=== PATIENT | female | born 1995 | race Hispanic/Latino ===

== ENCOUNTER 2017-09-26 20:20 | Emergency (ER) | payer OTHER, SELFPAY | END 2017-09-26 22:08 | disposition home or self-care (01) | LOC: ERS 20:20 | DX: J45.909 Unspecified asthma, uncomplicated (principal); F98.8 Other specified behavioral and emotional disorders with onset usually occurring in childhood and adolescence; F41.9 Anxiety disorder, unspecified | CPT/HCPCS: J7620 ==

== ENCOUNTER 2020-02-24 11:06 | Emergency (ER) | payer SELFPAY ==
[2020-02-24 14:43] LABS: SARS-CoV-2 MS2 Positive; SARS-CoV-2 N Gene Negative; SARS-CoV-2 S Gene Negative; SARS-CoV-2 by NAA Not Detected (NotDetected); SARS-CoV-2 orf1ab Negative
== END 2020-02-24 11:30 | disposition home or self-care (01) ==
LOC: ERS 11:06
DX: Z20.828 Contact with and (suspected) exposure to other viral communicable diseases (principal); J45.909 Unspecified asthma, uncomplicated
CPT/HCPCS: 87635; 99283; U0003

== ENCOUNTER 2020-04-25 03:25 | Emergency (ER) | payer SELFPAY ==
[2020-04-25] MEDS ORDERED: Ondansetron PF 4 MG/2 ML Vial ONE (03:58)
[2020-04-25] MEDS ORDERED: Morphine 4 MG/ML VIAL ONE (03:58)
[2020-04-25 04:16] LABS: Bilirubin Negative (Negative); Blood, Urine Negative (Negative); Clarity Clear (Clear); Glucose, Urine (Dipstick) Normal (Negative); Ketone, Urine Negative (Negative); Leukocyte Negative Leu/uL (Negative); Nitrite Negative (Negative); Protein, Urine (Dipstick) Negative (Neg-Trace); Specific Gravity, Urine 1.019 (1.002-1.036); Urobilinogen Normal mg/dL (Less than 2)
[2020-04-25 04:47] LABS: #Eosinphils 0.4 thou/uL (0.0-0.7); #Lymphocytes 2.7 thou/uL (1.20-3.40); #Monocytes 0.8 thou/uL (0.11-0.59); #Neutrophils 4.6 thou/uL (1.40-6.50); %Basophils 0.6 % (0.0-1.0); %Eosinophils 4.8 % (0.0-10.0); %Lymphocytes 31.7 % (21.0-51.0); %Neutrophils 53.9 % (42.0-75.0); Hemoglobin 12.2 g/dL (12.0-16.0); Mean Corpuscular HGB CONC 31.5 g/dL (32.0-36.0); Mean Corpuscular Hemoglobin 28.7 pg (27.0-31.0); Mean Corpuscular Volume 91.3 fL (78.0-98.0); Mean Platelet Volume 7.7 fL (7.4-10.4); Platelet Count 421 thou/uL (130-400); RBC Distribution Width 11.8 % (11.5-14.5); Red Blood Cell (RBC) Count 4.25 mill/uL (4.20-5.40); White Blood Cell (WBC) Count 8.6 thou/uL (4.8-10.8)
[2020-04-25 04:49] LABS: BHCG - Serum Negative (NEGATIVE); Pregs Control Background? CLEAR/WHITE (CLR/WHITE); Pregs Control Bar Appear? YES (CONTROL BAR)
[2020-04-25 05:02] LABS: ALT (SGPT) 28 U/L (8-55); AST (SGOT) 15 U/L (5-34); Alkaline Phosphatase 57 U/L (40-110); Anion Gap 14 mmol/L (10-20); BUN (Urea Nitrogen) 7 mg/dL (7.0-18.7); Bilirubin, Total 0.3 mg/dL (0.2-1.2); Calc. Creatinine Clearance 0 mL/min (70-130); Calcium 8.8 mg/dL (7.8-10.44); Carbon Dioxide 22 mmol/L (22-29); Chloride 107 mmol/L (98-107); Globulin 3.2 g/dL (2.4-3.5); Glucose 110 mg/dL (70-105); Protein, Total 7.2 g/dL (6.0-8.3); Sodium 139 mmol/L (136-145)
== END 2020-04-25 06:06 | disposition home or self-care (01) ==
LOC: ERS 03:25
DX: N83.202 Unspecified ovarian cyst, left side (principal); R11.0 Nausea; J45.909 Unspecified asthma, uncomplicated
CPT/HCPCS: 76856; 80053; 81003; 84703; 85025; 96374; 96375; J2270; J2405

== ENCOUNTER 2020-04-25 08:44 | Observation (INO) | payer SELFPAY ==
[2020-04-25] MEDS ORDERED: Ondansetron PF 4 MG/2 ML Vial ONE (10:25)
[2020-04-25] MEDS ORDERED: Morphine 4 MG/ML VIAL ONE (10:25)
--- NOTE | 2020-04-25 11:42 | PDOC.BPN ---
- Brief Progress Note OBGYN ED note BED 19 Reason for eval: Pelvic pain. R/O Torsion Patient seen at bedside. Non surgical exam. We will place in observation for now. See full dictated H&P for workup and eval. DX: 1. Pelvic pain 2. menses 3. HTN, NOS
[2020-04-25] MEDS ORDERED: Ibuprofen 600 MG TAB PO PRN (11:55)
--- NOTE | 2020-04-25 13:38 | ULT ---
EXAM: PELVIC ULTRASOUND INCLUDING TRANSABDOMINAL, TRANSVAGINAL, AND VASCULAR DUPLEX WITH COLOR AND SPECTRAL DOPPLER IMAGIN04/25/20 COMPARISON: Earlier exam, 04/25/20. The uterus measures 6.8 x 4.4 x 5.4 cm. The left ovary is abnormally enlarged and heterogeneous hypoechoic measuring 4.3 x 4.0 x 5.8 cm. Right ovary measures 3.2 x 3.1 x 3.3 cm. There is no evidence for vascular flow within the abnormal enlarged left ovary. This is consistent wi th left ovarian torsion. IMPRESSION: Persistent left ovarian torsion. Findings were discussed with Amarilis Garcia at 10:45 a.m. Libia LONGORIA
--- NOTE | 2020-04-25 13:45 | HP ---
TIME OF EVALUATION: About 1110 hours to 1135 hours. REASON FOR EVALUATION: Suspected ovarian torsion on the left versus other. CHIEF COMPLAINT: The patient states that she originally arrived for cramping on her period and was first seen at 03:30 a.m. in the morning and then sent home. She was called back for re-evaluation. HISTORY OF PRESENT ILLNESS: A 24-year-old G0 with a last menstrual period of yesterday being the 24 of April, which she states is her regular scheduled period. She is not on control. She is sexually active with the same sex partner. She states that this is her light day and then tomorrow she expects to have a regular full period. She states for the last 2 months that on her period she is getting increased pain, but this goes away in between her periods. She does not pass any clots. She came in at 03:30 a.m. in the morning for evaluation and she had an ultrasound done at that time, which was transvaginal. It was read out as nonconcerning, so she was sent home. There was apparently an over-read this morning and she was brought back for another ultrasound. This ultrasound showed "edema on the left" but no distinct mass and there was concern for "no flow." REVIEW OF SYSTEMS: GENERAL: No sick contacts. No shortness of breath. No chills. PULMONARY: No wheezing. No shortness of breath. CARDIOVASCULAR: No chest pain. NEUROLOGICAL: No headaches. No visual changes. EXTREMITIES: No lower extremity swelling or unusual leg pain. PAST MEDICAL HISTORY: Negative. MEDICATIONS: None. ALLERGIES: NONE. PAST SURGICAL HISTORY: Negative. SOCIAL HISTORY: She does vaping tobacco and occasionally uses marijuana. She last used marijuana 2 days ago and this was for recreational use, not for pain. She is with a same-sex partner. PHYSICAL EXAMINATION: VITAL SIGNS: Blood pressure is 158/110, pulse is 84, O2 Sat 99% on room air. GENERAL: She is in no acute distress, lying down, watching TV. ABDOMEN: Soft and nontender. There is no rebound or guarding. There is no pain on deep palpation. Pelvic exam was deferred. (Exam performed with ED RN in room) DIAGNOSTIC DATA: Ultrasound findings are as stated in the HPI. I discussed these findings with Dr. Trujillo, who is a radiologist in the reading room today. Laboratory data from earlier visit shows a normal white blood cell count and normal urine. This is by the nurse practitioner report in the emergency room. ASSESSMENT: This is a 24-year-old G0, who is on menses with pelvic pain. There is no ovarian masses on ultrasound, but there was "edema" by ultrasound criteria on the left ovary. There was concern for no flow on the left. Clinically, however, the patient does not appear to be acutely ill, is not in severe pain, and I do not suspect torsion as a clinical diagnosis. PLAN: 1. Pain may be coming from her menses, which is also what the patient explained. 2. Hypertension. I am unsure if this is hypertension, which is essential or hypertension because she is nervous because she is in the emergency room. She has never seen a physician and does not have a physician followup, so she is not sure if this is a new diagnosis either. 3. I did discuss with her that I would prefer inpatient observation for now for the day to see how she does. As she is clinically well without surgical findings, and does not appear to be in overt pain, I do not feel that rushing her to the OR is mata at this time. 4. I did inform her that if symptoms progress or there is clinical suspicion for a torsion that we may take her for laparoscopy and she is aware. 5. I did not consent her for surgery at this time because we will just admit her for observation now. Job ID: [id number] MTDD
[2020-04-25] MEDS ORDERED: Butorphanol Tartrate 1 MG/ML VIAL SLOW IVP PRN (14:12)
[2020-04-25] MEDS ORDERED: Promethazine HCl 25 MG/ML VIAL IM/IV PRN (14:12)
--- NOTE | 2020-04-25 14:12 | PDOC.BPN ---
- Brief Progress Note Patient has arrived to [address] [place] [address] allergic to IBUPROFEN. Use Stadol for pain, nos if needed/
[2020-04-25 15:30] VITALS: BMI 38.3
[2020-04-25 16:20] VITALS: BP 134/96; TEMP 98.8
--- NOTE | 2020-04-25 17:23 | PDOC.BPN ---
- Brief Progress Note ALLERGY CLARIFICATION: My interviw with the patient revealed no allergies by her account. However, the ED gave verbal report to Lesia on 3SE and states "Ibubrofen allergy". The patient states she does NOT have that allergy. I have ordered toradol 30mg IV x 1 for presumed menstrual cramps. She is doing well, in NAD. I suspect I will send her home later this PM. Clinically, do not suspect torsion.
[2020-04-25] MEDS ORDERED: Ketorolac Tromethamine 30 MG/ML VIAL IVP SCH (17:30)
--- NOTE | 2020-04-25 18:31 | PDOC.BPN ---
- Brief Progress Note Patient seen at bedside. OK for DC. Do not suspect torsion clinically. See DC summary for details (dictated now)
--- NOTE | 2020-04-28 06:32 | DIS ---
DATE OF ADMISSION: 04/25/2020 DATE OF DISCHARGE: 04/25/2020 PRINCIPAL DIAGNOSES: 1. Menses. 2. Pelvic pain. 3. Dysmenorrhea. HOSPITAL COURSE: In brief, this patient was brought back to the hospital by the emergency room for re-evaluation after she was initially sent home. So, this entire evaluation really started at about 3:30 this morning when it was first begun. She then went home and then the ER called her back for "rule out torsion." That ultrasound done this morning showed absence of flow on the left, but no distinct ovarian mass. The radiologist that I discussed with on the phone, stated there was possible ovarian "edema." However, because the patient's clinical presentation did not match the ultrasound, I decided to watch her in the hospital rather than taking her straight to surgery. The patient told me on multiple occasions that over the last 2 to 3 months she has been having increased pain with her periods. She is otherwise fine in between. She also came into the ER last time she was on her cycle for similar symptoms and then came back again because her cramps were so bad. I watched the patient from the time I first saw her (see H and P) until 1829. I saw the patient several times while she was on the floor and I do not feel clinically that she is having torsion. She is in no acute distress and abdomen exam continues to be benign. She did also think that this is related to her cycles, and I discussed with her the possibility of starting control pills as an outpatient to reduce her dysmenorrhea. She actually has a [facility] appointment on Tuesday and she will keep that for control initiation. Her blood pressure was initially elevated in the ER, but was much better while on the floor. She was not tachycardic and she was afebrile. We did give her some Toradol before she went home. I believe that this is more compatible with dysmenorrhea than ovarian torsion as the clinical picture does not match. I did inform her that we diagnosed torsion by clinical presentation, not just on ultrasound findings. Job ID: [id number]
== END 2020-04-25 19:00 | disposition home or self-care (01) ==
LOC: ERS 08:44 → 3SW 11:43
PROVIDERS: ADMIT Obstetrics & Gynecology; ATTEND Obstetrics & Gynecology
DX: N94.6 Dysmenorrhea, unspecified (principal); I10 Essential (primary) hypertension; F17.290 Nicotine dependence, other tobacco product, uncomplicated; Z88.0 Allergy status to penicillin; Z88.6 Allergy status to analgesic agent
CPT/HCPCS: 76856; 96374; 96375; G0378; J0595; J1885; J2270; J2405

== ENCOUNTER 2020-07-03 10:33 | Emergency (ER) | payer SELFPAY ==
[2020-07-03] MEDS ORDERED: Dexamethasone 4 MG TAB ONE (10:49)
[2020-07-03] MEDS ORDERED: diphenhydrAMINE 25 MG CAP ONE (10:49)
[2020-07-03] MEDS ORDERED: Famotidine 20 MG TAB ONE (10:49)
== END 2020-07-03 12:27 | disposition home or self-care (01) ==
LOC: ERS 10:33
DX: T78.1XXA Other adverse food reactions, not elsewhere classified, initial encounter (principal); R07.89 Other chest pain; R06.02 Shortness of breath; J45.909 Unspecified asthma, uncomplicated
CPT/HCPCS: 99283; J8540; Q0163

== ENCOUNTER 2021-08-27 11:13 | Emergency (ER) | payer BC | END 2021-08-27 12:30 | disposition home or self-care (01) | LOC: ERS 11:13 | DX: B34.9 Viral infection, unspecified (principal); Z20.822 Contact with and (suspected) exposure to COVID-19; F17.290 Nicotine dependence, other tobacco product, uncomplicated | CPT/HCPCS: 71045; U0003; U0005 ==